=== PATIENT | female | born 1980 ===

== ENCOUNTER 2018-07-28 08:43 | Inpatient (IN) | payer OTHER ==
[~2018-07-28] VITALS: Ht 157.5 cm; Wt 3.2 kg
[2018-07-28] MEDS ORDERED: IRON325 MG PO (09:54)
[2018-07-28] MEDS ORDERED: PRENATAL FORMU1 EAC1 PO (09:54)
[2018-07-28] MEDS ORDERED: NIFE60TA3 PO (09:55)
== END 2018-07-31 14:40 | disposition home or self-care (01) | DRG 766 ==
LOC: LDR 08:43 → OB/GYN 15:39
PROVIDERS: Specialist
PROC: 0UL70ZZ Occlusion of Bilateral Fallopian Tubes, Open Approach (ICD-10-PCS; 2018-07-28)
PROC: 4A1HXCZ Monitoring of Products of Conception, Cardiac Rate, External Approach (ICD-10-PCS; 2018-07-28)
PROC: 10D00Z1 Extraction of Products of Conception, Low, Open Approach (ICD-10-PCS; principal; 2018-07-28 14:00)
DX: O64.1XX0 Obstructed labor due to breech presentation, not applicable or unspecified (principal); O24.420 Gestational diabetes mellitus in childbirth, diet controlled; Z3A.38 38 weeks gestation of pregnancy; Z37.0 Single live birth; Z30.2 Encounter for sterilization